=== PATIENT | female | born 1970 | race American Indian/Alaskan Native ===

== ENCOUNTER 2019-05-03 11:27 | Emergency (ER) | payer MEDICAID, OTHER ==
[2019-05-03 12:01] VITALS: BP 157/80
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
[2019-05-03] MEDS ORDERED: IBUPROFEN PO ONE (15:37)
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
== END 2019-05-03 17:11 | disposition home or self-care (01) ==
LOC: ED 11:27
DX: S20.219A Contusion of unspecified front wall of thorax, initial encounter (principal); S13.4XXA Sprain of ligaments of cervical spine, initial encounter; F17.200 Nicotine dependence, unspecified, uncomplicated; F12.10 Cannabis abuse, uncomplicated; Z88.6 Allergy status to analgesic agent; Z79.899 Other long term (current) drug therapy; V89.2XXA Person injured in unspecified motor-vehicle accident, traffic, initial encounter; Y93.89 Activity, other specified; Y92.410 Unspecified street and highway as the place of occurrence of the external cause; Y99.8 Other external cause status
CPT/HCPCS: 71046; 72125